=== PATIENT | female | born 1965 | race Caucasian/White ===

== ENCOUNTER 2021-07-06 14:35 | Inpatient (IN) | payer OTHER ==
[~2021-07-06] VITALS: Ht 157.5 cm; Wt 78.6 kg
[2021-07-06] MEDS ORDERED: SODIUM CHLORIDE FLUSH 10ML SYR IVF ONE (17:30)
[2021-07-06] MEDS ORDERED: ONDANSETRON 2MG/ML, 2ML IVPush ONE (17:30)
[2021-07-06] MEDS ORDERED: SODIUM CHLORIDE 0.9% 1,000ML IVBOLUS ONE ×2 (17:30→21:30)
[2021-07-06] MEDS ORDERED: MORPHINE SULFATE 4 MG/ML, 1ML IVPush PRN (17:30)
--- NOTE | 2021-07-06 18:03 | NUR ---
PT TO ROOM FROM LOBBY
[2021-07-06] MEDS ORDERED: ONDANSETRON 2MG/ML, 2ML ONE (18:04)
[2021-07-06] MEDS ORDERED: MORPHINE SULFATE 4 MG/ML, 1ML ONE (18:04)
--- NOTE | 2021-07-06 18:14 | NUR ---
THIS IS A 55 YEAR OLD FEMALE WHO C/O I HAVE A MASSIVE CROSS, RUNNING A FEVER, NAUSEATED, MY RIGHT SIDE IS REALLY TENDER AND HURTS" HAS BEEN SINCE MONDAY. TOOK TYLENOL AT 2PM TODAY.
[2021-07-06 18:45] LABS: ALANINE AMINOTRANSFERASE 28 U/L (12-78); ALBUMIN 3.5 g/dL (3.4-5.0); ANION GAP 12 mmol/L (5-15); CALCIUM 9.2 mg/dL (8.5-10.1); CHLORIDE 95 mmol/L (98-107); CREATININE 1.43 mg/dL (0.55-1.02)
[2021-07-06 18:47] LABS: ALKALINE PHOSPHATASE 70 U/L (45-117); BILIRUBIN,TOTAL 1.3 mg/dL (0.2-1.0); TOTAL PROTEIN 9.1 g/dL (6.4-8.2)
[2021-07-06 18:48] LABS: BASOPHILS % (AUTO) 0 % (0-1); EOSINOPHILS % (AUTO) 0 % (1-7); LYMPHOCYTES % (AUTO) 4 % (22-44); MEAN CORPUSCULAR HEMOGLOBIN 29.8 pg (27.0-34.8); MEAN CORPUSCULAR HGB CONC 33.8 g/dL (32.4-35.8); MEAN PLATELET VOLUME 11.3 fL (7.4-10.4); MONOCYTES % (AUTO) 13 % (2-9); NEUTROPHILS % (AUTO) 82 % (42-75); PLATELET COUNT 122 x10^3/uL (130-400); RED CELL DISTRIBUTION WIDTH 14.5 % (9.6-15.2)
--- NOTE | 2021-07-06 18:56 | NUR ---
REPORT TO AMADO BENITEZ, PLAN OF CARE DISCUSSED
--- NOTE | 2021-07-06 19:52 | NUR ---
Urine sent to lab at this time
[2021-07-06 20:01] LABS: MICROSCOPIC INDICATED
--- NOTE | 2021-07-06 20:49 | NUR ---
P being transported to [facility] at this time
[2021-07-06] MEDS ORDERED: CEFTRIAXONE 1,000 MG in DEXTROSE 5% 50 ML IVPB ONE (21:00)
[2021-07-06] MEDS ORDERED: KETOROLAC 30 MG/1 ML ONE (21:29)
[2021-07-06] MEDS ORDERED: KETOROLAC 30 MG/1 ML IVPush ONE (21:30)
--- NOTE | 2021-07-06 22:54 | NUR ---
Report given to EMMAUNEL Sofia
[2021-07-06] MEDS ORDERED: BISACODYL 10 MG SUPP PR PRN (23:00)
[2021-07-06 23:26] VITALS: BP 103/68
[2021-07-07] MEDS: HEPARIN 5,000 UNITS/ML, 1ML SQ SCH ×4 (00:09→23:53)
[2021-07-07] MEDS: SODIUM CHLORIDE 0.9% 1,000 ML IV SCH ×3 (00:09→21:16)
[2021-07-07] MEDS ORDERED: LEVO125C4 PO (01:06)
[2021-07-07] MEDS ORDERED: [UNRECOGNIZED DRUG - CODE] PO (01:06)
[2021-07-07 01:16] VITALS: BP 93/65
[2021-07-07] MEDS: ACETAMINOPHEN 325 MG TABLET PO PRN ×2 (03:55→09:00)
[2021-07-07 05:24] LABS: MEAN CORPUSCULAR HEMOGLOBIN 30.4 pg (27.0-34.8); MEAN CORPUSCULAR HGB CONC 34.4 g/dL (32.4-35.8); MEAN PLATELET VOLUME 11.5 fL (7.4-10.4); PLATELET COUNT 105 x10^3/uL (130-400); RED BLOOD COUNT 4.51 x10^6/uL (3.82-5.3); RED CELL DISTRIBUTION WIDTH 14.6 % (9.6-15.2)
[2021-07-07 05:36] LABS: ANION GAP 9 mmol/L (5-15); CALCIUM 8.9 mg/dL (8.5-10.1); CHLORIDE 99 mmol/L (98-107); CREATININE 1.39 mg/dL (0.55-1.02)
[2021-07-07 06:30] LABS: <PLATELET ESTIMATE> DECREASED; <RBC MORPHOLOGY> NORMAL; BAND#(MANUAL) 0.07 x10^3/uL; BANDS%(MANUAL) 1 % (0-7); BASOS#(MANUAL) 0.07 x10^3/uL (0-0.1); BASOS% (MANUAL) 1 % (0-1); LARGE PLATELETS 1+; LYMPH#(MANUAL) 0.78 x10^3/uL (1-3.4); LYMPHS% (MANUAL) 11 % (22-44); MONOS#(MANUAL) 0.92 x10^3/uL (0.3-2.7); MONOS% (MANUAL) 13 % (2-9); MYELOCYTES# (MANUAL) 0.07 x10^3/uL (0-0); MYELOCYTES% (MANUAL) 1 % (0-0); SEG#(MANUAL) 5.18 x10^3/uL (1.8-6.8); SEGS% (MANUAL) 73 % (42-75)
[2021-07-07 07:01] VITALS: BP 100/66
[2021-07-07] MEDS: LEVOTHYROXINE 125 MCG TABLET PO SCH (07:59)
[2021-07-07] MEDS: LOVASTATIN 40 MG TABLET PO SCH (07:59)
[2021-07-07 12:18] VITALS: BP 110/70
[2021-07-07] MEDS: ONDANSETRON 2MG/ML, 2ML IVPush PRN ×2 (16:08→19:48)
[2021-07-07 19:34] VITALS: BP 106/71
[2021-07-07] MEDS: CEFTRIAXONE 1,000 MG in DEXTROSE 5% 50 ML IVPB SCH (21:17)
[2021-07-08 02:05] VITALS: BP 128/82
[2021-07-08 05:35] LABS: BASOPHILS % (AUTO) 0 % (0-1); EOSINOPHILS % (AUTO) 1 % (1-7); LYMPHOCYTES % (AUTO) 12 % (22-44); MEAN CORPUSCULAR HEMOGLOBIN 30.3 pg (27.0-34.8); MEAN CORPUSCULAR HGB CONC 34.4 g/dL (32.4-35.8); MEAN PLATELET VOLUME 11.7 fL (7.4-10.4); MONOCYTES % (AUTO) 17 % (2-9); NEUTROPHILS % (AUTO) 69 % (42-75); PLATELET COUNT 118 x10^3/uL (130-400); RED BLOOD COUNT 4.23 x10^6/uL (3.82-5.3); RED CELL DISTRIBUTION WIDTH 14.5 % (9.6-15.2)
[2021-07-08] MEDS: OXYcodone/APAP 10/325MG TABLET PO PRN ×3 (05:36→20:22)
[2021-07-08 05:42] LABS: CHLORIDE 101 mmol/L (98-107)
[2021-07-08 05:52] LABS: ANION GAP 7 mmol/L (5-15); CALCIUM 8.6 mg/dL (8.5-10.1); CREATININE 1.11 mg/dL (0.55-1.02)
[2021-07-08] MEDS: LEVOTHYROXINE 125 MCG TABLET PO SCH (06:24)
[2021-07-08 07:19] VITALS: BP 112/69
[2021-07-08] MEDS: ONDANSETRON 2MG/ML, 2ML IVPush PRN ×2 (08:43→14:56)
[2021-07-08] MEDS: LOVASTATIN 40 MG TABLET PO SCH (08:44)
[2021-07-08] MEDS: HEPARIN 5,000 UNITS/ML, 1ML SQ SCH ×2 (08:44→15:04)
[2021-07-08 14:16] VITALS: BP 131/80
[2021-07-08] MEDS: PROMETHAZINE 25 MG/ML, 1ML IM PRN (15:05)
[2021-07-08] MEDS: SODIUM CHLORIDE 0.9% 1,000 ML IV SCH (18:44)
[2021-07-08 19:22] VITALS: BP 127/85
[2021-07-08] MEDS: CEFTRIAXONE 1,000 MG in DEXTROSE 5% 50 ML IVPB SCH (20:44)
[2021-07-09 00:32] VITALS: BP 129/79
[2021-07-09] MEDS: HEPARIN 5,000 UNITS/ML, 1ML SQ SCH ×5 (01:07→23:22)
[2021-07-09] MEDS: OXYcodone/APAP 10/325MG TABLET PO PRN ×5 (01:14→22:20)
[2021-07-09] MEDS: PROMETHAZINE 25 MG/ML, 1ML IM PRN (01:20)
[2021-07-09] MEDS: ONDANSETRON 2MG/ML, 2ML IVPush PRN ×3 (01:20→22:16)
[2021-07-09] MEDS: SODIUM CHLORIDE 0.9% 1,000 ML IV SCH ×2 (05:00→21:00)
[2021-07-09] MEDS: LEVOTHYROXINE 125 MCG TABLET PO SCH (06:05)
[2021-07-09 06:23] VITALS: BP 115/76
[2021-07-09] MEDS: LOVASTATIN 40 MG TABLET PO SCH (07:33)
[2021-07-09] MEDS ORDERED: POTASSIUM PHOSPHATE 22 MEQ in SODIUM CHLORIDE 0.9% 500 ML IV ONE (08:00)
[2021-07-09 14:06] VITALS: BP 118/79
[2021-07-09 19:28] VITALS: BP 100/63
[2021-07-09] MEDS: CEFTRIAXONE 1,000 MG in DEXTROSE 5% 50 ML IVPB SCH (21:09)
[2021-07-10 02:19] VITALS: BP 92/63
[2021-07-10] MEDS: LEVOTHYROXINE 125 MCG TABLET PO SCH (05:47)
[2021-07-10 06:01] LABS: ANION GAP 7 mmol/L (5-15); CALCIUM 8.5 mg/dL (8.5-10.1); CHLORIDE 101 mmol/L (98-107); CREATININE 1.09 mg/dL (0.55-1.02)
[2021-07-10 06:27] VITALS: BP 110/70
[2021-07-10] MEDS: HEPARIN 5,000 UNITS/ML, 1ML SQ SCH ×2 (08:00→09:29)
[2021-07-10] MEDS: LOVASTATIN 40 MG TABLET PO SCH (09:29)
[2021-07-10] MEDS: ACETAMINOPHEN 325 MG TABLET PO PRN (09:32)
[2021-07-10] MEDS: SODIUM CHLORIDE 0.9% 1,000 ML IV SCH (09:32)
[2021-07-10] MEDS ORDERED: CEFT2PIG2 IV (11:21)
[2021-07-10 12:54] VITALS: BP 124/80
[2021-07-10] MEDS: CEFTRIAXONE 1,000 MG in DEXTROSE 5% 50 ML IVPB SCH (14:27)
== END 2021-07-10 15:23 | disposition home or self-care (01) | DRG 871 ==
LOC: ED 21:48 → EDIP 21:52 → 3N 23:14
PROVIDERS: ADMIT Internal Medicine; ATTEND Internal Medicine
PROC: 02HV33Z Insertion of Infusion Device into Superior Vena Cava, Percutaneous Approach (ICD-10-PCS; principal; 2021-07-10)
PROC: B518ZZA Fluoroscopy of Superior Vena Cava, Guidance (ICD-10-PCS; 2021-07-10)
PROC: B548ZZA Ultrasonography of Superior Vena Cava, Guidance (ICD-10-PCS; 2021-07-10)
DX: A41.51 Sepsis due to Escherichia coli [E. coli] (principal); N17.0 Acute kidney failure with tubular necrosis; E87.1 Hypo-osmolality and hyponatremia; I74.5 Embolism and thrombosis of iliac artery; N10 Acute pyelonephritis; B96.89 Other specified bacterial agents as the cause of diseases classified elsewhere; E03.9 Hypothyroidism, unspecified; E78.5 Hyperlipidemia, unspecified; G43.C0 Periodic headache syndromes in child or adult, not intractable; K76.0 Fatty (change of) liver, not elsewhere classified
CPT/HCPCS: 36415; 36573; 70450; 71045; 74176; 80048; 80053; 81001; 83605; 83735; 84100; 84145; 85025; 87040; 87077; 87086; 87186; 96374; 96375; G0378; J0696; J1644; J1885; J2405; J2550; C1751; J2270; J7030; J7040